=== PATIENT | female | born 1955 ===

== ENCOUNTER 2024-02-08 11:32 | Day surgery (SDC) | payer MEDICARE, OTHER ==
[2024-02-03 12:18] VITALS: BMI 32.4
[2024-02-08] MEDS ORDERED: LACTATED RINGERS 1,000 ML IV SCH (11:50)
[2024-02-08] MEDS ORDERED: LIDOCAINE 1% (10MG/ML) FOR IV START INTRADERMA PRN (11:50)
[2024-02-08] MEDS: IV FLUID CONTINUATION 1,000 ML IV ONE (11:58)
[2024-02-08 12:10] VITALS: TEMP 97.3
[2024-02-08 13:16] LABS: Glucose,Whole Blood 194 mg/dL (70-110)
[2024-02-08] MEDS ORDERED: PROPOFOL 10 MG/ML 20 ML VIAL IV ONE (14:15)
[2024-02-08] MEDS: BENZOCAINE SPRAY 1 EACH MM ONE (14:19)
--- NOTE | 2024-02-08 14:39 | P.TEE ---
Description of Procedure(s): Procedure performed: Transesophageal Echocardiogram with color flow doppler, pulsed wave doppler and continuous wave doppler, moderate conscious sedation Moderate conscious sedation: Moderate conscious sedation was supplied by anesthesia, see separate report Complications: none Indications: history of watchman, atrial fibrillation PROCEDURE: After the risks, benefits and alternatives of the above mentioned procedure was explained in detail with the patient, informed consent was obtained. Patient was brought to the lab in a fasting state. Patient was given IV Versed and Fentanyl for sedation. The throat was sprayed with Hurricane to anesthetize the throat. A lubricated Omni probe was then introduced into the esophagus and stomach and multiple views were obtained. 2D echo with color flow doppler, pulsed wave doppler and continuous wave doppler was utilized. Agitated saline bubbles were injected to assess for any intra-atrial shunt. Initial plans of doing a cardioversion however patient had been noted to be in sinus rhythm on arrival. The probe was then removed. Patient tolerated the procedure well. Patient was transferred to the post procedure area in stable and satisfactory condition. FINDINGS: 1. The aortic valve is tricuspid with mild aortic sclerosis and no significant aortic stenosis. 2. The mitral valve appears be normal with mild regurgitation. 3. Tricuspid valve appears to be normal. 4. The interatrial septum is intact. No evidence of PFO. 5. Left atrial appendage has a Watchman device which is well seated with no leak. 6. Left ventricular ejection fraction 55-60%
[2024-02-08 15:45] VITALS: RESP 16
[2024-02-08 15:47] VITALS: BP 116/71; PULSE 66
== END 2024-02-08 16:19 ==
LOC: OR 11:32
PROVIDERS: ATTEND Internal Medicine
DX: I48.11 Longstanding persistent atrial fibrillation
CPT/HCPCS: 93312; 93320; 93325

== ENCOUNTER 2024-02-26 16:37 | Emergency (ER) | payer MEDICARE, OTHER ==
[2024-02-26 16:52] VITALS: TEMP 98.2
--- NOTE | 2024-02-26 17:21 | ED ---
General Adult HPI - General Chief complaint: Arrhythmia/Palpitations Stated complaint: Irregular heart rate Time Seen by Provider: 02/26/24 16:57 Source: patient, RN notes reviewed Mode of arrival: ambulatory Limitations: no limitations - History of Present Illness Initial comments: Patient is a 68-year-old female present to the emergency department with concern for racing heart rate. Onset of symptoms was yesterday, worse today. Patient feels like her heart rate is running fast. Patient states she does have a history of A-fib recently however symptoms were that of more fluttering. Patient states when she went for cardioversion she was unable to get the heart into atrial fibrillation and believes she is normally not in it. No chest pain or dyspnea. Patient recently started Ozempic and questions if her symptoms are related to that. - Related Data Home Medications Medication Instructions Recorded Confirmed Aspirin [Adult Low Dose Aspirin EC] 81 mg PO DAILY 02/03/24 02/26/24 Atorvastatin Calcium 40 mg PO HS 02/03/24 02/26/24 Insulin Detemir (Levemir) [Levemir] 20 unit SQ HS 02/03/24 02/26/24 Insulin Detemir (Levemir) [Levemir] 30 unit SQ DAILY 02/03/24 02/26/24 Metoprolol Succinate [Metoprolol 25 mg PO DAILY 02/03/24 02/26/24 Succinate ER] Semaglutide [Ozempic] 0.25 mg SQ MO 02/03/24 02/26/24 hydroCHLOROthiazide 12.5 mg PO DAILY 02/03/24 02/26/24 lisinopriL 40 mg PO DAILY 02/03/24 02/26/24 Calcium Carbonate/Vitamin D3 1 tab PO DAILY 02/26/24 02/26/24 [Calcium 600 mg-Vit D3 5 mcg (200 unit)] Cholecalciferol [Vitamin D3 (25 25 mcg PO BID 02/26/24 02/26/24 Mcg = 1000 Iu)] metFORMIN HCL ER [Glucophage XR] 1,000 mg PO DAILY 02/26/24 02/26/24 Previous Rx's Medication Instructions Recorded Apixaban [Eliquis Starter Pack 5 - 10 mg PO DIRECTED 30 Days 02/26/24 (for VTE)] #1 each Allergies Allergy/AdvReac Type Severity Reaction Status Date / Time Penicillins Allergy Severe Rash/Hives Verified 02/26/24 19:16 latex Allergy Rash/Hives Verified 02/26/24 19:16 morphine Allergy Unknown Verified 02/26/24 19:16 raw honey Allergy Swelling Uncoded 02/08/24 12:10 Review of Systems ROS Statement: Those systems with pertinent positive or pertinent negative responses have been documented in the HPI. ROS Other: All systems not noted in ROS Statement are negative. Constitutional: Denies: fever Eyes: Denies: eye pain ENT: Denies: ear pain Respiratory: Denies: cough, dyspnea Cardiovascular: Reports: as per HPI, palpitations. Denies: chest pain Gastrointestinal: Denies: nausea, vomiting, diarrhea Past Medical History Past Medical History: Atrial Fibrillation, CVA/TIA, Diabetes Mellitus, Hypertension, Musculoskeletal Disorder Additional Past Medical History / Comment(s): See Dr Cummings's H&P. Hx CVA 05/08. Fatigues easily. Osteoporosis, gets infusion once a year. History of Any Multi-Drug Resistant Organisms: None Reported Past Surgical History: Section, Cholecystectomy, Tubal Ligation Additional Past Surgical History / Comment(s): Watchman 2022, bilateral cataract surgery, nasal surgery, section X2. Past Anesthesia/Blood Transfusion Reactions: No Reported Reaction, Motion Sickness Past Psychological History: No Psychological Hx Reported Smoking Status: Former smoker - Past Family History Mother Family Medical History: No Reported History General Exam Limitations: no limitations General appearance: alert, in no apparent distress Head exam: Present: normocephalic Eye exam: Present: normal appearance Neck exam: Present: normal inspection Respiratory exam: Present: normal lung sounds bilaterally Cardiovascular Exam: Present: tachycardia, irregular rhythm GI/Abdominal exam: Present: soft. Absent: tenderness Extremities exam: Present: normal inspection. Absent: pedal edema, calf tenderness Neurological exam: Present: alert Psychiatric exam: Present: normal affect, normal mood Skin exam: Present: normal color Course Vital Signs 02/26/24 02/26/24 02/26/24 16:47 17:35 19:05 Temperature 98.2 F Pulse Rate 110 H 93 84 Respiratory 18 18 18 Rate Blood Pressure 116/74 101/71 127/77 O2 Sat by Pulse 97 97 98 Oximetry EKG Findings - EKG Results: EKG: interpreted by ERMD (Left axis. QT 348. Inferior Q waves. No acute ST change.) EKG shows: atrial fibrillation Medical Decision Making - Lab Data Result diagrams: 02/26/24 17:27 02/26/24 17:27 Lab Results 02/26/24 02/26/24 02/26/24 Range/Units 17:27 17:27 17:27 WBC 7.4 (3.8-10.6) k/uL RBC 4.14 (3.80-5.40) m/uL Hgb 12.2 (11.4-16.0) gm/dL Hct 37.8 (34.0-46.0) % MCV 91.4 (80.0-100.0) fL MCH 29.5 (25.0-35.0) pg MCHC 32.2 (31.0-37.0) g/dL RDW 14.0 (11.5-15.5) % Plt Count 311 (150-450) k/uL MPV 7.9 Neutrophils % 54 % Lymphocytes % 34 % Monocytes % 6 % Eosinophils % 4 % Basophils % 1 % Neutrophils # 4.0 (1.3-7.7) k/uL Lymphocytes # 2.5 (1.0-4.8) k/uL Monocytes # 0.4 (0-1.0) k/uL Eosinophils # 0.3 (0-0.7) k/uL Basophils # 0.0 (0-0.2) k/uL PT 10.4 (10.0-12.5) sec INR 0.9 (<1.2) APTT 23.7 (22.0-30.0) sec Sodium 140 (137-145) mmol/L Potassium 4.5 (3.5-5.1) mmol/L Chloride 107 (98-107) mmol/L Carbon Dioxide 24 (22-30) mmol/L Anion Gap 9 mmol/L BUN 36 H (7-17) mg/dL Creatinine 1.11 H (0.52-1.04) mg/dL Est GFR (CKD-EPI)AfAm 59 (>60 ml/min/1.73 sqM) Est GFR (CKD-EPI)NonAf 51 (>60 ml/min/1.73 sqM) Glucose 184 H (74-99) mg/dL Calcium 10.2 (8.4-10.2) mg/dL Magnesium 1.7 (1.6-2.3) mg/dL Total Bilirubin 0.6 (0.2-1.3) mg/dL AST 24 (14-36) U/L ALT 18 (4-34) U/L Alkaline Phosphatase 74 (38-126) U/L Troponin I (0.000-0.034) ng/mL Total Protein 8.8 H (6.3-8.2) g/dL Albumin 4.6 (3.5-5.0) g/dL Lipase 398 H (23-300) U/L TSH 2.230 (0.465-4.680) mIU/L Free T4 1.27 (0.78-2.19) ng/dL 02/26/24 Range/Units 17:27 WBC (3.8-10.6) k/uL RBC (3.80-5.40) m/uL Hgb (11.4-16.0) gm/dL Hct (34.0-46.0) % MCV (80.0-100.0) fL MCH (25.0-35.0) pg MCHC (31.0-37.0) g/dL RDW (11.5-15.5) % Plt Count (150-450) k/uL MPV Neutrophils % % Lymphocytes % % Monocytes % % Eosinophils % % Basophils % % Neutrophils # (1.3-7.7) k/uL Lymphocytes # (1.0-4.8) k/uL Monocytes # (0-1.0) k/uL Eosinophils # (0-0.7) k/uL Basophils # (0-0.2) k/uL PT (10.0-12.5) sec INR (<1.2) APTT (22.0-30.0) sec Sodium (137-145) mmol/L Potassium (3.5-5.1) mmol/L Chloride (98-107) mmol/L Carbon Dioxide (22-30) mmol/L Anion Gap mmol/L BUN (7-17) mg/dL Creatinine (0.52-1.04) mg/dL Est GFR (CKD-EPI)AfAm (>60 ml/min/1.73 sqM) Est GFR (CKD-EPI)NonAf (>60 ml/min/1.73 sqM) Glucose (74-99) mg/dL Calcium (8.4-10.2) mg/dL Magnesium (1.6-2.3) mg/dL Total Bilirubin (0.2-1.3) mg/dL AST (14-36) U/L ALT (4-34) U/L Alkaline Phosphatase (38-126) U/L Troponin I <0.012 (0.000-0.034) ng/mL Total Protein (6.3-8.2) g/dL Albumin (3.5-5.0) g/dL Lipase (23-300) U/L TSH (0.465-4.680) mIU/L Free T4 (0.78-2.19) ng/dL Disposition Clinical Impression: Atrial fibrillation Disposition: HOME SELF-CARE Condition: Stable Instructions (If sedation given, give patient instructions): A-fib (Atrial Fibrillation) (ED) Additional Instructions: Prescription for blood thinner Eliquis sent to pharmacy. Please do follow-up with cardiology beginning of the week. Please also follow-up with your primary care physician and your older worker specialist beginning of the week. Return for increased heart rate, chest pain or difficulty breathing, worsening symptoms or any other concerns. Prescriptions: Apixaban [Eliquis Starter Pack (for VTE)] 5 - 10 mg PO DIRECTED 30 Days #1 each Is patient prescribed a controlled substance at d/c from ED?: No Referrals: Delfino Cummings DO [STAFF PHYSICIAN] - 1-2 days Radha Hernandez MD [STAFF PHYSICIAN] - 1-2 days Jordan Rodríguez MD [STAFF PHYSICIAN] - 1-2 days Forms: Area PCPs Time of Disposition: 19:53
[2024-02-26 17:52] LABS: Basophils % (A) 1 %; Eosinophils # (A) 0.3 k/uL (0-0.7); Eosinophils % (A) 4 %; HCT 37.8 % (34.0-46.0); HGB 12.2 gm/dL (11.4-16.0); Lymphocytes # (A) 2.5 k/uL (1.0-4.8); Lymphocytes % (A) 34 %; MCH 29.5 pg (25.0-35.0); MCHC 32.2 g/dL (31.0-37.0); MCV 91.4 fL (80.0-100.0); Mean Platelet Volume 7.9; Monocytes # (A) 0.4 k/uL (0-1.0); Monocytes % (A) 6 %; Neutrophils % (A) 54 %; Platelet Count 311 k/uL (150-450); RBC 4.14 m/uL (3.80-5.40); WBC 7.4 k/uL (3.8-10.6)
--- NOTE | 2024-02-26 17:57 | XR ---
EXAMINATION TYPE: XR chest 2V DATE OF EXAM: 02/26/2024 COMPARISON: NONE HISTORY: Shortness of breath TECHNIQUE: Frontal and lateral views of the chest are obtained. FINDINGS: Scattered senescent parenchymal changes noted. Hyperinflation compatible with COPD. No evidence for infiltrate. No evidence for atelectasis. Heart size is stable. Mediastinal structures are stable and grossly unremarkable. No evidence for hilar prominence. Degenerative changes dorsal spine. IMPRESSION: 1. No evidence for acute pulmonary disease. [facility], , 02/26/2024 5:54 PM
[2024-02-26 17:59] LABS: INR 0.9 (<1.2); Partial Thromboplastin Time 23.7 sec (22.0-30.0); Prothrombin Time 10.4 sec (10.0-12.5)
[2024-02-26 18:06] LABS: ALT 18 U/L (4-34); AST 24 U/L (14-36); African American GFR (CKD) 59 (>60 ml/min/1.73 sqM); Albumin 4.6 g/dL (3.5-5.0); Alkaline Phosphatase 74 U/L (38-126); Anion Gap 9 mmol/L; Blood Urea Nitrogen 36 mg/dL (7-17); Calcium 10.2 mg/dL (8.4-10.2); Carbon Dioxide 24 mmol/L (22-30); Chloride 107 mmol/L (98-107); Glucose 184 mg/dL (74-99); Lipase 398 U/L (23-300); Magnesium 1.7 mg/dL (1.6-2.3); Non-African American GFR(CKD) 51 (>60 ml/min/1.73 sqM); Potassium 4.5 mmol/L (3.5-5.1); Sodium 140 mmol/L (137-145); Total Bilirubin 0.6 mg/dL (0.2-1.3); Total Protein 8.8 g/dL (6.3-8.2)
[2024-02-26 18:23] LABS: T4, Free (Free Thyroxine) 1.27 ng/dL (0.78-2.19)
[2024-02-26] MEDS: Apixaban Initiation Dose--VTE 5 MG TAB PO SCH (21:12)
[2024-02-26 21:21] VITALS: BP 126/69; PULSE 85; RESP 16
== END 2024-02-26 21:21 | disposition home or self-care (01) ==
LOC: EC 16:37
CPT/HCPCS: 36415; 71046; 80053; 83690; 83735; 84439; 84443; 84481; 84484; 85025; 85610; 85730; 93005; 99285